=== PATIENT | male | born 2000 | race Caucasian/White ===

== ENCOUNTER 2024-06-23 20:28 | Emergency (ER) | payer OTHER ==
[~2024-06-23] VITALS: Ht 180.3 cm; Wt 74.8 kg
[2024-06-23] MEDS: IV NORMAL SALINE 1000 ML BAG IV ONE (22:35)
[2024-06-23] MEDS ORDERED: ETOMIDATE 20 MG/10 ML VIAL ONE ×2 (22:43→22:58)
[2024-06-23] MEDS: ETOMIDATE 20 MG/10 ML VIAL IV ONE ×2 (22:50→23:00)
[2024-06-23] MEDS ORDERED: HYDR-3980 PO (23:09)
[2024-06-24 00:35] VITALS: BP 122/75; TEMP 98; O2SAT 100
== END 2024-06-24 00:38 | disposition home or self-care (01) ==
LOC: ER 20:28
DX: S43.014A Anterior dislocation of right humerus, initial encounter (principal); Z79.899 Other long term (current) drug therapy; X58.XXXA Exposure to other specified factors, initial encounter; Y93.42 Activity, yoga; Y92.89 Other specified places as the place of occurrence of the external cause; Y99.8 Other external cause status
CPT/HCPCS: 99285; 23650; 96360; 73030; 73020; J3490 ×2; J7040; A4606; A4663